=== PATIENT | male | born 1945 | race Caucasian/White ===

== ENCOUNTER 2018-10-10 17:57 | Emergency (ER) | payer MEDICARE ==
[2018-10-10] MEDS ORDERED: ACETAMINOPHEN 1,000 MG/100 ML 100 ML IV STA (18:20)
[2018-10-10] MEDS ORDERED: SODIUM CHLORIDE 0.9% 1,000 ML IV ONE (18:20)
[2018-10-10] MEDS ORDERED: ONDANSETRON 4 MG/2 ML VIAL IVP STA (18:20)
[2018-10-10 18:34] LABS: BASOPHILS # (AUTO) 0.1 10^3/uL (0.0-0.1); BASOPHILS % (AUTO) 0.4 %; EOSINOPHILS # (AUTO) 0.3 10^3/uL (0.0-0.7); EOSINOPHILS % (AUTO) 2.1 %; HGB - HEMOGLOBIN 15.1 g/dL (14.0-18.0); LYMPHOCYTES # (AUTO) 1.5 10^3/uL (1.5-3.5); LYMPHOCYTES % (AUTO) 11.9 %; MEAN CORPUSCULAR HEMOGLOBIN 31.1 pg (27.0-31.0); MEAN CORPUSCULAR HGB CONC 33.1 g/dL (32.0-36.0); MEAN CORPUSCULAR VOLUME 93.8 fL (80.0-94.0); MEAN PLATELET VOLUME 8.4 fL (7.4-11.4); MONOCYTES # (AUTO) 0.6 10^3/uL (0.0-1.0); MONOCYTES % (AUTO) 4.6 %; NEUTROPHILS # (AUTO) 9.8 10^3/uL (1.5-6.6); NEUTROPHILS % (AUTO) 80.2 %; PLT - PLATELET COUNT 175 10^3/uL (130-450); RED BLOOD COUNT 4.86 10^6/uL (4.70-6.10); RED CELL DISTRIBUTION WIDTH 13.3 % (12.0-15.0); WHITE BLOOD COUNT 12.2 x10^3/uL (4.8-10.8)
[2018-10-10 18:47] LABS: ALBUMIN 4.4 g/dL (3.2-5.5); ALBUMIN/GLOBULIN RATIO 1.4 (1.0-2.2); BILIRUBIN,TOTAL 0.7 mg/dL (0.2-1.0); CALCIUM 9.6 mg/dL (8.5-10.3); CREATININE 0.8 mg/dL (0.6-1.2); TOTAL PROTEIN 7.6 g/dL (6.7-8.2)
[2018-10-10 18:47] LABS: BILIRUBIN,URINE NEGATIVE (NEGATIVE); GLUCOSE, URINE (UA) NEGATIVE (NEGATIVE); KETONES,URINE (UA) NEGATIVE (NEGATIVE); LEUKOCYTE ESTERASE, URINE NEGATIVE (NEGATIVE); NITRITE,URINE NEGATIVE (NEGATIVE); OCCULT BLOOD,URINE NEGATIVE (NEGATIVE); PROTEIN,URINE NEGATIVE (NEGATIVE); UROBILINOGEN,URINE 0.2 (NORMAL) E.U./dL (NORMAL)
[2018-10-10 18:49] LABS: CLARITY,URINE CLEAR (CLEAR)
[2018-10-10] MEDS ORDERED: IOVERSOL 320 100 ML VIAL IVP ONE ×2 (19:15→19:39)
[2018-10-10] MEDS ORDERED: AMPICILLIN/SULBACTAM 3 GM in SODIUM CHLORIDE 0.9% MINIBAG 100 ML IV STA (19:39)
--- NOTE | 2018-10-10 19:47 | CT Report ---
Reason: RLQ abd pain Procedure Date: 10/10/2018 Accession Number: [id number] / [id number] Procedure: CT - Abdomen/Pelvis W CPT Code: FULL RESULT: EXAM: CT ABDOMEN AND PELVIS EXAM DATE: 10/10/2018 07:28 PM. CLINICAL HISTORY: RLQ abd pain. COMPARISONS: None. TECHNIQUE: Routine helical CT imaging was performed through the abdomen and pelvis. IV contrast: . Enteric contrast: No. Reconstructions: Coronal and sagittal. In accordance with CT protocol optimization, one or more of the following dose reduction techniques were utilized for this exam: automated exposure control, adjustment of mA and/or KV based on patient size, or use of iterative reconstructive technique. FINDINGS: Lung Bases: Unremarkable. Liver: 2.5 cm simple cyst in left lobe of liver. No concerning masses. Gallbladder/Bile Ducts: Unremarkable. Spleen: Normal. Pancreas: Normal. Adrenal Glands: Normal. Kidneys: Normal. No masses or hydronephrosis. Peritoneal Cavity/Bowel: . There is pericolonic fat stranding and focal colonic wall thickening involving the mid sigmoid colon (image 65 and series 4). Findings most consistent with acute diverticulitis. Underlying colonic mass is not excluded. There is trace reactive free fluid. The appendix is well visualized and normal. Pelvic Organs: Normal. The bladder and visualized pelvic organs are within normal limits. 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 There is distal vascular flow. This focal aneurysm lies in very close approximation to the inflamed colonic loop. Although not likely to be a mycotic aneurysm, however cannot be completely excluded. Bones: No significant abnormality. Other: None. IMPRESSION: Pericolonic fat stranding with diffuse colonic diverticulosis involving mid sigmoid colon with the eccentric sigmoid colonic wall thickening. Findings are most consistent with acute diverticulitis. Underlying colonic mass is not excluded. Trace reactive free fluid in the peritoneum. No focal fluid collection. 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 There are signs of atherosclerosis, and aneurysm is most likely related to atherosclerotic disease. However infective/mycotic aneurysm is not completely excluded. A follow-up CT abdomen pelvis is recommended after resolution of acute episode for follow-up. A 2.5 cm simple cyst in left lobe of liver. RADIA
--- NOTE | 2018-10-10 19:59 | ED Physician Documentation ---
PD HPI ABD PAIN - Stated complaint Stated Complaint: ABD PX - Chief complaint Chief Complaint: Abd Pain - History obtained from History obtained from: Patient - History of Present Illness Timing - onset: How many days ago (2) Timing - duration: Days (2) Timing - details: Gradual onset Pain level max: 7 Pain level now: 7 Quality: Aching, Pain Location: Other (RLQ) Radiation: No: Chest, , Lower back, Left flank, Left shoulder, Right flank, Right shoulder, Upper back Improved by: Laying still Worsened by: Moving Associated symptoms: Fever, Nausea. No: Vomiting, Hematemesis, Diarrhea, Constipation, Melena, Hematochezia Similar symptoms before: Has not had sx before Recently seen: Not recently seen Review of Systems Ten Systems: 10 systems reviewed and negative Eyes: denies: Decreased vision Ears: denies: Ear pain Nose: denies: Rhinorrhea / runny nose, Congestion GI: denies: Diarrhea, Hematemesis, Bloody / black stool Skin: denies: Rash Musculoskeletal: denies: Neck pain, Back pain PD PAST MEDICAL HISTORY - Past Medical History Past Medical History: Yes Cardiovascular: Hypertension, High cholesterol, Coronary artery disease Respiratory: None Neuro: None Endocrine/Autoimmune: None GI: Diverticulitis : None HEENT: None Psych: None Musculoskeletal: None Derm: None - Past Surgical History Past Surgical History: Yes Cardiovascular: Coronary stent - Present Medications Home Medications: Ambulatory Orders Medication Instructions Recorded Confirmed Amox/Clav 875/125 [Augmentin] 1 each PO Q8H #30 tablet 10/10/18 Ondansetron Odt [Zofran] 4 mg TL Q6H PRN #10 tablet 10/10/18 - Allergies Allergies/Adverse Reactions: Allergies Allergy/AdvReac Type Severity Reaction Status Date / Time No Known Drug Allergies Allergy Verified 10/10/18 18:01 - Social History Does the pt smoke?: No Smoking Status: Never smoker Does the pt drink ETOH?: Yes Does the pt have substance abuse?: No - Immunizations Immunizations are current?: Yes - POLST Patient has POLST: No PD ED PE NORMAL - Vitals Vital signs reviewed: Yes - General General: Alert and oriented X 3, No acute distress, Well developed/nourished - HEENT HEENT: PERRL, Moist mucous membranes - Neck Neck: Supple, no meningeal sign - Cardiac Cardiac: RRR, Strong equal pulses - Respiratory Respiratory: No respiratory distress, Clear bilaterally - Abdomen Abdomen: Soft, Non distended, Other (Tender palpation right lower quadrant at McBurney's point, also tender to palpation suprapubic. Negative obturator and psoas signs) - Back Back: No spinal TTP - Derm Derm: Warm and dry, No rash - Extremities Extremities: No edema - Neuro Neuro: Alert and oriented X 3 - Psych Psych: Normal mood, Normal affect Results - Vitals Vitals: Vital Signs - 24 hr 10/10/18 10/10/18 17:58 20:31 Temperature 36.7 C Heart Rate 82 90 Respiratory 14 18 Rate Blood Pressure 157/89 H 180/92 H O2 Saturation 95 95 Oxygen O2 Source Room air - Labs Labs: Laboratory Tests 10/10/18 10/10/18 10/10/18 18:25 18:25 18:40 WBC 12.2 H RBC 4.86 Hgb 15.1 Hct 45.6 MCV 93.8 MCH 31.1 H MCHC 33.1 RDW 13.3 Plt Count 175 MPV 8.4 Neut # (Auto) 9.8 H Lymph # (Auto) 1.5 [place] # (Auto) 0.6 Eos # (Auto) 0.3 Baso # (Auto) 0.1 Absolute Nucleated RBC 0.00 Nucleated RBC % 0.0 Sodium 137 Potassium 4.0 Chloride 100 L Carbon Dioxide 25 Anion Gap 12.0 BUN 21 H Creatinine 0.8 Estimated GFR (MDRD) 95 Glucose 171 H Calcium 9.6 Total Bilirubin 0.7 AST 24 ALT 23 Alkaline Phosphatase 79 Total Protein 7.6 Albumin 4.4 Globulin 3.2 Albumin/Globulin Ratio 1.4 Lipase 33 Urine Color YELLOW Urine Clarity CLEAR Urine pH 6.0 Ur Specific [place] 1.015 Urine Protein NEGATIVE Urine Glucose (UA) NEGATIVE Urine Ketones NEGATIVE Urine Occult Blood NEGATIVE Urine Nitrite NEGATIVE Urine Bilirubin NEGATIVE Urine Urobilinogen 0.2 (NORMAL) Ur Leukocyte Esterase NEGATIVE Ur Microscopic Review NOT INDICATED Urine Culture Comments NOT INDICATED - Rads (name of study) CT abdomen pelvis Radiology: Prelim report reviewed, EMP read contemporaneously, See rad report (Pericolonic fat stranding with diffuse colonic diverticulosis involving mid sigmoid colon with the eccentric sigmoid colonic wall thickening. Findings are most consistent with acute diverticulitis. Underlying colonic mass is not ex cluded. Trace reactive free fluid in the peritoneum. No focal fluid collection. 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 There are signs of atherosclerosis, and aneurysm is most likely related to atherosclerotic disease. However infective/mycotic aneurysm is not completely excluded. A follow-up CT abdomen pelvis is recommended after resolution of acute episode for follow-up. A 2.5 cm simple cyst in left lobe of liver. ) PD MEDICAL DECISION MAKING - ED course Complexity details: reviewed results, re-evaluated patient, considered differential, d/w patient ED course: 73-year-old male with acute diverticulitis. Given IV Unasyn. Will place on oral antibiotics for home. Declines any narcotic pain medication. 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 Patient is well-appearing, nontoxic. Patient would like to go home at this time. No perforation or abscess. Patient counseled regarding signs and symptoms for which I believe and urgent re-evaluation would be necessary. Patient with good understanding of and agreement to plan and is comfortable going home at this time This document was made in part using voice recognition software. While efforts are made to proofread this document, sound alike and grammatical errors may occur. Departure - Departure Disposition: 01 Home, Self Care Clinical Impression: Acute diverticulitis Condition: Good Health Concerns: abd pain Plan of Treatment: abx Care Goals: improve pt Assessment: improved Instructions: ED Diverticulitis Follow-Up: Provider,Other [Primary Care Provider] - Within 3 Days Prescriptions: Amox/Clav 875/125 [Augmentin] 1 each PO Q8H #30 tablet Ondansetron Odt [Zofran] 4 mg TL Q6H PRN #10 tablet PRN Reason: Nausea / Vomiting Comments: Take all antibiotics until gone. Return if you worsen. Follow-up with your doctor for further care. Follow-up with your aneurysm as previously described with your vascular surgeon and your doctor. Pericolonic fat stranding with diffuse colonic diverticulosis involving mid sigmoid colon with the eccentric sigmoid colonic wall thickening. Findings are most consistent with acute diverticulitis. Underlying colonic mass is not excluded. Trace reactive free fluid in the peritoneum. No focal fluid collection. 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 There are signs of atherosclerosis, and aneurysm is most likely related to atherosclerotic disease. However infective/mycotic aneurysm is not completely excluded. A follow-up CT abdomen pelvis is recommended after resolution of acute episode for follow-up. A 2.5 cm simple cyst in left lobe of liver. Discharge Date/Time: 10/10/18 21:05
[2018-10-10 20:31] VITALS: BP 180/92
== END 2018-10-10 21:05 | disposition home or self-care (01) ==
LOC: ED 17:57
DX: K57.32 Diverticulitis of large intestine without perforation or abscess without bleeding (principal); I72.3 Aneurysm of iliac artery; K76.89 Other specified diseases of liver; I10 Essential (primary) hypertension
CPT/HCPCS: 36415; 74177; 80053; 81003; 83690; 85025; 96365; 96367; 96375; 99283; 99284; J0131; Q9967; 81001; 87086